=== PATIENT | female | born 1990 | race Caucasian/White ===

== ENCOUNTER → 2017-08-07 10:19 | Outpatient (REF) | payer OTHER, SELFPAY ==
[2017-08-07 14:42] LABS: Basophils # 0.1 K/mm3 (0-0.2); Basophils % 0.7 % (0.1-2.0); Eosinophils # 0.2 K/mm3 (0.0-0.4); Eosinophils % 1.9 % (0.1-12.0); Hematocrit 46.7 % (37.0-47.0); Hemoglobin 14.5 g/dL (12.2-16.2); Lymphocytes # 2.7 K/mm3 (0.7-4.5); Mean Corpuscular Hemoglobin 26.5 pg (27.0-31.2); Mean Corpuscular Volume 85.4 fl (81-99); Mean Platelet Volume 9.6 fl (7.4-10.4); Monocytes # 0.6 K/mm3 (0.1-1.0); Monocytes % 6.1 % (1.7-9.3); Neutrophils # 5.5 K/mm3 (1.8-7.8); Neutrophils % 61.3 % (37.0-80.0); Platelet Count 342 K/mm3 (142-424); Red Blood Count 5.46 M/mm3 (4.20-5.40); Red Cell Distribution Width 12.9 % (11.5-17.5)
[2017-08-07 14:52] LABS: Alanine Aminotransferase 22 U/L (12-78); Albumin Level 3.7 gm/dL (3.4-5.0); Albumin/Globulin Ratio 0.8 (1.1-1.8); Alkaline Phosphatase 125 U/L (46-116); Anion Gap 14.5 mEq/L (5-15); Aspartate Amino Transferase 17 U/L (15-37); Bilirubin,Total 0.3 mg/dL (0.2-1.0); Blood Urea Nitrogen 8 mg/dL (7-18); Calcium 9.7 mg/dL (8.5-10.1); Carbon Dioxide 26 mmol/L (21.0-32.0); Chloride 103 mmol/L (98-107); Chol/HDL Ratio 5.4 (1-3.5); Cholesterol 183 mg/dL (140-200); Creatinine,Serum 0.79 mg/dL (0.55-1.02); Estimated Glomerular Filt Rate 88 ml/min (>60); Free T4 (Free Thyroxine) 1.07 ng/dl (0.76-1.46); GFR (African American) 106 ML/MIN (>60); Globulin 4.4 gm/dl (1.3-3.2); Glucose 85 mg/dL (74-106); HDL Cholesterol 34 mg/dL (29-89); LDL Cholesterol 118 mg/dL (0-130); Potassium 4.5 mmoL/L (3.5-5.1); Sodium 139 mmol/L (136-145); Thyroid Stimulating Hormone 3.32 uIU/ml (0.358-3.740); Total Protein,Serum 8.1 gm/dL (6.4-8.2); Triglycerides 153 mg/dL (30-200); VLDL Cholesterol 31 mg/dL (0-40)
== END ==
LOC: LAB 10:19
PROVIDERS: Visit Provider Emergency Medicine
DX: R68.89 Other general symptoms and signs (principal); E66.3 Overweight
CPT/HCPCS: 80053; 80061; 84439; 84443; 85025